=== PATIENT | male | born 1965 | race Caucasian/White ===

== ENCOUNTER 2017-03-04 11:00 | Inpatient (IN) | payer MEDICARE ==
[~2017-03-04] VITALS: Ht 188 cm; Wt 125.6 kg
--- NOTE | ~2017-03-04 | DS ---
Unit #: [id number] #: [id number] Patient: MUSHTAQ PHILLIPS [id number] [facility] [address] [place] [address] [id number] I MR#: [id number] NAME: MUSHTAQ PHILLIPS. ROOM: [facility] Age: 51 Sex: M Admission Date: 03/04/2017 : 1965 Discharge Date: 03/07/2017 Attending Physician: Dylan Downing M.D. Primary Care Physician: Generic Doctor Not In System DISCHARGE SUMMARY REASON FOR ADMISSION Suicidal ideation. DIAGNOSTIC STUDIES Laboratory data, urine drug screen positive for benzodiazepines. HOSPITAL COURSE The patient was admitted to inpatient unit on March 04, and discharged on 03/07/17. The patient was treated on the inpatient unit with group therapy and individual therapy, and medication management, structured milieu. The patient was responsive to treatment. Subsequently, the patient was discharged with the plan to follow up in outpatient program. DISCHARGE DIAGNOSES PSYCHIATRIC: [place] I Major depressive disorder, recurrent, severe, F33.2. Rule out bipolar mood disorder. Anxiety disorder, NOS. [place]m II Ulm III Morbid obesity. Obstructive sleep apnea. Crohn's disease. Diabetes mellitus. Hypertension. Ulm IV Psychosocial stressor. [place] V INSTRUCTIONS TO PATIENT The patient is to follow up in outpatient clinic as well as with social worker school. DISCHARGE MEDICATIONS 1. [place] carbonate 300 mg twice daily for mood stabilization 2. Zoloft 50 mg at bedtime for depression 3. Vistaril 25 mg twice daily for anxiety 4. Desyrel 50 mg at bedtime for sleep CONDITION AT DISCHARGE The patient pleasant and cooperative, and denied any psychotic symptoms or any suicidal ideation. PROGNOSIS Unit #: [id number] #: [id number] Patient: MUSHTAQ PHILLIPS Guarded. DIET AND ACTIVITY As tolerated. Dictated by... Nory Mojica/kasia TD: 03/10/2017 06:59 JOB #: [id number] DISCHARGE SUMMARY Page 1 of 1 X Dylan Downing MD X DISCHARGE SUMMARY
--- NOTE | ~2017-03-04 | PN ---
Unit #: [id number] #: [id number] Patient: YOUSUF PHILLIPS [id number] [facility] [address] [place] [address] [id number] MR#: [id number] NAME: YOUSUF PHILLIPS. ROOM: P207 Age: 51 Sex: M Admission Date: 03/04/2017 : 1965 Attending Physician: Dylan Downing M.D. Admitting Physician: Dylan Downing M.D. Primary Care Physician: Generic Doctor Not In System [facility] PROGRESS NOTES DATE 03/05/2017 DISCUSSION Yousuf is a 51-year-old male seen on 03/05/2017. Patient interviewed. Chart reviewed. Obtained information from nursing staff. Patient continues to be sad, depressed, withdrawn, isolative, anxious, suicidal ideation. Complete review of system unremarkable. MENTAL STATUS EXAMINATION General appearance, patient moderately obese, dressed casually. Attention span, concentration fair. Oriented in time, place and person. Mood and affect sad, depressed. Speech monotone. Thought process concrete. Patient reported having suicidal ideation, anxious, nervous. Recent and remote memory poor. Insight and judgement poor. DIAGNOSIS Major depressive disorder, recurrent, severe. ASSESSMENT/PLAN Advised to continue with current medication and therapeutic protocol. If needed, consider adjustment of medication. Dictated by... Nory Mojica/dcu TD: 03/05/2017 20:02 JOB #: [id number] Unit #: [id number] #: [id number] Patient: YOUSUF PHILLIPSMELISSA PROGRESS NOTES Page 1 of 1 X Dylan Downing MD X PROGRESS NOTE
--- NOTE | ~2017-03-04 | HP ---
Unit #: [id number] #: [id number] Patient: YOUSUF PHILLIPS [id number] [place] [address] [id number] I MR#: [id number] NAME: YOUSUF PHILLIPS. ROOM: P207 Age: 51 Sex: M Admission Date: 03/04/2017 : 1965 Attending Physician: Dylan Downing M.D. Admitting Physician: Dylan Downing M.D. Primary Care Physician: Generic Doctor Not In System HISTORY AND PHYSICAL HISTORY OF PRESENT ILLNESS Yousuf is a 51 year old admitted to [address] [place] [address] with depression and verbalizing wanting to hurt himself. PAST MEDICAL HISTORY 1. Morbid obesity. 2. Obstructive sleep apnea. 3. Crohn's disease. 4. Diabetes mellitus. 5. High blood pressure. PAST SURGICAL HISTORY 1. Partial colectomy. 2. Gall bladder. ALLERGIES Penicillin. SOCIAL HISTORY He does not smoke. Denies alcohol and illicit drug use. FAMILY HISTORY Medically noncontributory. REVIEW OF SYSTEMS CONSTITUTIONAL: No fever or chills. HEENT: Denies any sore throat, ear pain or runny nose. CARDIOVASCULAR: Denies chest pain, irregular heart rhythm or palpitations. CHEST: Denies shortness of breath or cough. No hemoptysis. GASTROINTESTINAL: Denies nausea, vomiting, diarrhea or chronic constipation. ENDOCRINE: Denies history of increased thirst or urination. No recent significant weight loss or gain. GENITOURINARY: Denies dysuria, frequency, or hematuria. SKIN: Denies any rashes. HEMATOLOGIC: Denies history of increased bleeding or bruising. MUSCULOSKELETAL: Denies any hot, swollen joints. No generalized muscle pain. NEUROLOGIC: Denies problems with vision or speech. No frequent, severe headaches. No numbness, tingling or weakness in any extremities. Denies loss of bladder or bowel control. Unit #: [id number] #: [id number] Patient: YOUSUF PHILLIPS CURRENT MEDICATIONS 1. Micardis 80 mg q day 2. Aspirin 81 mg q day 3. Colestid 1 gram t.i.d. 4. BuSpar 5 mg b.i.d. 5. Temazepam 15 mg q.h.s. p.r.n. 6. Proventil inhaler p.r.n. 7. Milk of Magnesia p.r.n. 8. Maalox p.r.n. 9. Tylenol p.r.n. 10. Zoloft 25 mg q day 11. HCTZ 25 mg q day 12. Lexapro 20 mg q day PHYSICAL EXAMINATION GENERAL: Alert, morbidly obese, in no apparent distress. VITAL SIGNS: Blood pressure 138/80, heart rate 80, respirations 16, temperature 98.6. WEIGHT: 277. HEIGHT: 6 foot 2 inches. SKIN: Warm and dry without rash or lesion. HEENT: Normocephalic. TMs not viewed. Oral and nasal passages clear. Conjunctivae clear. Pupils equal, round and reactive to light and accommodation. Extraocular movements intact. NECK: Supple without lymphadenopathy or thyromegaly. HEART: Regular rate and rhythm without murmur. LUNGS: Clear. ABDOMEN: Soft, nontender. : Not done. EXTREMITIES: No evidence of cyanosis, clubbing or edema. Moves all extremities without focal deficit. NEUROLOGICAL: Grossly within normal limits. Cranial Nerves: II: Visual penn are intact. III, IV AND : Extraocular movements are intact. Pupils are equal, round and reactive to light. V: Facial sensation is grossly normal. VII: Facial movements and expression are normal. VIII: Auditory acuity grossly intact. IX, X: Uvula is midline. Phonation is normal. XI: Patient shrugs shoulders and turns head normally. XII: Tongue protrudes in the midline. Sensory and Motor Function: Sensory and motor sensation is grossly normal. Motor: moves all extremities well. Coordination: Gait is normal. Deep Tendon Reflexes: Intact. IMPRESSION Psychiatric admission. RECOMMENDATIONS PSYCHIATRIC: Per psychiatrist. MEDICAL: I see no contraindications to participating in facility's activities. MEDICAL PROGNOSIS Good. MEDICAL CONDITION Stable. Unit #: [id number] #: [id number] Patient: YOUSUF PHILLIPS Dictated by... Carole Price P.A.-C. for Nory Fernando/kristen TD: 03/04/2017 21:52 JOB #: [id number] HISTORY AND PHYSICAL Page 1 of 1 X Carole Price HISTORY AND PHYSICAL
--- NOTE | ~2017-03-04 | PA ---
Unit #: [id number] #: [id number] Patient: MUSHTAQ PHILLIPS [id number] [facility] [address] [place] [address] [id number] I MR#: [id number] NAME: MUSHTAQ PHILLIPS. [place] [facility] [place] [facility] [place] Age: 51 Sex: M Admission Date: 03/04/2017 : 1965 Date of Assessment: Attending Physician: Dylan Downing M.D. Admitting Physician: Dylan Downing M.D. Primary Care Physician: Generic Doctor Not In System PSYCHIATRIC ASSESSMENT INFORMANT Patient reliability, fair informant. Chart reliability, good. CHIEF COMPLAINT Suicidal ideation and depression. HISTORY OF PRESENT ILLNESS Mr. To is a 61-year-old male, presented with the above-mentioned complaint. The patient lives with significant other and presented with severe depression, suicidal ideation with a plan to kill himself. The patient reported that since the of his daughter by suicide in 2014, his depression has worsened to the point, unable to sleep. The patient tried several medications in the past, but still feeling sad, depressed, nothing is working. The patient reports lack of motivation, isolation, agitation, irritability. The patient denied any psychotic symptoms or any homicidal ideation. The patient denied any use of any drugs or alcohol or any inpatient admission at this time for psychiatric stabilization. PAST PSYCHIATRIC HISTORY Remarkable for history of outpatient treatment. No known history of any inpatient treatment. FAMILY HISTORY AND SOCIAL HISTORY The patient has a good support system. No history of abuse. No legal charges. History of daughter committing suicide and uncle committing suicide, history of alcohol abuse in family. PAST MEDICAL HISTORY Remarkable for hypertension, sleep apnea, Crohn disease. MEDICATION HISTORY The patient is currently on Zoloft 25 mg daily, Deplin, aspirin, temazepam. ALLERGIES No known drug allergies. 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 No use of any drugs or alcohol. REVIEW OF SYSTEMS HEENT: Eyes, clear. Ears, nose, mouth, and throat; clear. CARDIOVASCULAR: Unremarkable. Unit #: [id number] #: [id number] Patient: MUSHTAQ PHILLIPS RESPIRATORY: Unremarkable. GI: Unremarkable. : Unremarkable. SKIN: Unremarkable. LYMPH NODE: Unremarkable. NEUROLOGIC: Unremarkable. ENDOCRINE: Unremarkable. HEMATOLOGIC: Unremarkable. ALLERGIC/IMMUNOLOGIC: Unremarkable. MUSCULOSKELETAL: Muscle strength and tone, no atrophy or abnormal movement. Gait normal. MENTAL STATUS EXAMINATION CONSTITUTIONAL: Measurement of vital signs; temperature 97.6, pulse 77, respirations 18, blood pressure 138/79. Height 6 feet 2 inches, weight 277 pounds. General appearance; the patient dressed casually. The patient did not show any facial deformity. Musculoskeletal: Please see above. PSYCHIATRIC EXAMINATION Description of speech; regular rate, normal volume, normal articulation, coherent. Description of thought process, goal directed. Description of association, intact. Description of abnormal psychotic thinking; the patient denied any hallucination or delusions, but mood lability, depression, suicidal ideation. Description of the patient's judgment, concerning everyday activity, poor. Social situation, poor. Concerning psychiatric condition, poor. Mental status examination; oriented in time, place, and person. Recent and remote memory, fair. Attention span and concentration, fair. Language, able to name object and repeat phrases. Fund of knowledge, aware of current event and past history, vocabulary intact. Mood and affect, sad and dysphoric. Insight and judgment, fair to poor. ASSETS AND LIABILITIES Assets, the patient is articulate, able to take care of his ADL. Liability, history of depression, suicidal ideation. ADMITTING DIAGNOSES Psychiatric: Major depressive disorder, recurrent, severe, F33.2. Anxiety disorder, not otherwise specified, F40.01. Secondary diagnosis: Morbid obesity, obstructive sleep apnea, Crohn disease, diabetes mellitus, hypertension. Stressors: Psychosocial stressors. PSYCHIATRIC PLAN AND TREATMENT GOAL AND DISCHARGE PLAN 1. Advised to admit the patient on the inpatient unit. Provide safe, supportive, and structured environment. 2. Ordered labs; CBC, CMP, UA, UDS. 3. Precaution for self-harm. 4. Advised to continue with current medication with a plan to increase Zoloft to 50 mg daily and add lithium carbonate 300 mg b.i.d. for mood stabilization. Also, consider Vistaril for anxiety. If needed, the patient to attend group therapy, individual therapy. 5. Treatment goal; to attain euthymic mood, gain insight into his problem, and learn coping skill. Unit #: [id number] #: [id number] Patient: MUSHTAQ PHILLIPS 6. Discharge plan; plan to stabilize the patient and consider followup in outpatient program. ESTIMATED LENGTH OF STAY 2 weeks. Dictated by... Nory Mojica/jess TD: 03/06/2017 08:34 JOB #: [id number] PSYCHIATRIC ASSESSMENT Page 1 of 1 X Dylan Downing MD PSYCHIATRIC ASSESSMENT
--- NOTE | ~2017-03-04 | PN ---
Unit #: [id number] #: [id number] Patient: YOUSUF PHILLIPS [id number] [facility] [address] [place] [address] [id number] I MR#: [id number] NAME: YOUSUF PHILLIPS. ROOM: P207 Age: 51 Sex: M Admission Date: 03/04/2017 : 1965 Attending Physician: Dylan Downing M.D. Admitting Physician: Dylan Downing M.D. Primary Care Physician: Generic Doctor Not In System [facility] PROGRESS NOTES DATE 03/06/2017 DISCUSSION Mr. Yousuf Phillips is a 51-year-old male, seen on 03/06/2017. The patient reports feeling better and would like to go next week. The patient tolerating medication fairly well. No side effects from medications. Mood sad and dysphoric. Vital signs, 97.9, 96, 127/90. REVIEW OF SYSTEMS Complete review of systems unremarkable. MENTAL STATUS EXAMINATION General appearance: Patient dressed casually. Attention span and concentration, fair. Oriented in time, place, and person. Mood and affect, sad and dysphoric. Speech, monotone. Thought process, goal-directed. The patient denied any thoughts of harming self or others or any psychotic symptoms. Recent and remote memory, poor. Insight and judgment, poor. DIAGNOSIS Major depressive disorder, recurrent, severe. ASSESSMENT/PLAN Advised to continue with the current medication and therapeutic protocol, and if needed consider further adjustment of medication. Dictated by... Nory Mojica/kasia TD: 03/07/2017 05:42 JOB #: [id number] Unit #: [id number] #: [id number] Patient: YOUSUF PHILLIPS PROGRESS NOTES Page 1 of 1 X Dylan Downing MD X PROGRESS NOTE
[2017-03-05 12:38] LABS: BASOPHIL# 0.1 X10e3 (0-0.3); BASOPHIL% 1.1 % (0-2.5); EOSINOPHIL# 0.5 X10e3 (0-0.7); EOSINOPHIL% 4.1 % (0.0-7.0); HEMATOCRIT 44.3 % (38.0-50.0); HEMOGLOBIN 15.2 gm/dL (13.0-16.0); LYMPHOCYTE# 3.8 X10e3 (1.0-3.5); LYMPHOCYTE% 28.5 % (17.0-45.0); MEAN CELL VOLUME 87.6 FL (83-96); MEAN CORPUSCULAR HEMOGLOBIN 30.1 PG (28-34); MEAN CORPUSCULAR HGB CONC 34.4 g/dL (30-36); MEAN PLATELET VOLUME 8.2 FL (6.5-11.5); MONOCYTE# 1.1 X10e3 (0-1.0); MONOCYTE% 8.2 % (3.0-12.0); NEUTROPHIL# 7.7 X10e3 (1.5-7.1); NEUTROPHIL% 58.1 % (40-75); PLATELET COUNT 379 X10e3 (140-420); RED BLOOD COUNT 5.06 X10e (3.90-5.60); RED CELL DISTRIBUTION WIDTH 13.1 % (11.0-15.5); WHITE BLOOD COUNT 13.2 X10e3 (4.0-10.5)
[2017-03-05 12:43] LABS: DIFF IND NO
[2017-03-05 13:16] LABS: URINE APPEARANCE CLEAR; URINE BILIRUBIN NEG (NEG); URINE BLOOD NEG (NEG); URINE COLOR YELLOW; URINE GLUCOSE NEG (NEG); URINE KETONE NEG (NEG); URINE LEUKOCYTE ESTERASE NEG (NEG); URINE NITRATE NEG (NEG); URINE PROTEIN NEG (NEG); URINE SPECIFIC GRAVITY 1.018 (1.003-1.035); URINE UROBILINOGEN 0.2 MG/DL (NEG)
[2017-03-05 13:24] LABS: ALBUMIN SERUM 4.5 g/dL (3.5-5.0); BILIRUBIN,TOTAL 1.1 mg/dL (0.2-2.0); BUN/CREATININE RATIO 14.44; CALCIUM SERUM 9.9 mg/dL (8.4-10.2); CREATININE SERUM 0.9 mg/dL (0.6-1.4); GLOM FILT RATE Estimated 98.5 mL/min (>60); POTASSIUM 4.8 mmol/L (3.5-5.1)
[2017-03-05 14:11] LABS: AMPHETAMINE NEG (NEG); BARBITURATES NEG (NEG); BENZODIAZEPINES POS (NEG); COCAINE NEG (NEG); MARIJUANA NEG (NEG); OPIATES NEG (NEG); TRICYCLIC ANTIDEPRESSANTS NEG (NEG); U METHADONE NEG (NEG)
== END 2017-03-07 10:30 | disposition home or self-care (01) | DRG 885 ==
LOC: P2S 13:20 → POF 13:20 → P2S 16:41
PROVIDERS: Psychiatry & Neurology Psychiatry
DX: F33.2 Major depressive disorder, recurrent severe without psychotic features (principal); R45.851 Suicidal ideations; K50.90 Crohn's disease, unspecified, without complications; F41.9 Anxiety disorder, unspecified; E66.01 Morbid (severe) obesity due to excess calories; G47.33 Obstructive sleep apnea (adult) (pediatric); E11.9 Type 2 diabetes mellitus without complications; I10 Essential (primary) hypertension; Z88.0 Allergy status to penicillin; Z68.35 Body mass index [BMI] 35.0-35.9, adult
CPT/HCPCS: 80053; 80307; 81003; 85025